=== PATIENT | female | born 1970 | race Hispanic/Latino ===

== ENCOUNTER 2022-04-14 09:10 | Emergency (ER) | payer SELFPAY ==
[~2022-04-14] VITALS: Ht 149.9 cm; Wt 90.7 kg
[~2022-04-14 09:10] MED LIST: SODIUM CHLORIDE FLUSH 10 ML SYR IV PRN
[2022-04-14] MEDS ORDERED: ONDANSETRON HCL INJ 2MG/ML 2ML 2 MG/ML VIAL IV STA (09:40)
[2022-04-14 09:43] LABS: BASOPHILS # (AUTO) 0.1 (0.0-0.1); BASOPHILS % 0.4 % (0.0-1.0); EOSINOPHILS # (AUTO) 0.1 (0.0-0.4); EOSINOPHILS % 0.8 % (0.0-6.0); HEMATOCRIT 38.9 % (34.2-44.1); HEMOGLOBIN 12.3 g/dL (12.0-16.0); LYMPHOCYTES % 22.3 % (18.0-39.1); MEAN CORPUSCULAR HEMOGLOBIN 29.9 pg (28-32); MEAN CORPUSCULAR HGB CONC 31.6 g/dL (31-35); MEAN CORPUSCULAR VOLUME 94.6 fL (81-99); MONOCYTES # (AUTO) 0.7 (0.2-0.8); MONOCYTES % 5.4 % (4.4-11.3); NEUTROPHILS # (AUTO) 9.4 (2.1-6.9); NEUTROPHILS % 70.9 % (38.7-80.0); PLATELET COUNT 194 x10e3/uL (140-360); RED BLOOD COUNT 4.11 x10e6/uL (3.6-5.1); RED CELL DISTRIBUTION WIDTH 13.8 % (11.7-14.4)
[2022-04-14] MEDS ORDERED: SODIUM CHLORIDE 0.9% 1000ML 1,000 ML IV ONE (09:45)
[2022-04-14] MEDS ORDERED: Morphine 4mg INJECTION 4 MG/ML INJ IV ONE (09:45)
[2022-04-14 10:09] LABS: ALANINE AMINOTRANSFERASE 12 IU/L (0-55); ALBUMIN 3.6 g/dL (3.5-5.0); ALKALINE PHOSPHATASE 101 IU/L (40-150); ANION GAP 15.9 mmol/L (8-16); BLOOD UREA NITROGEN 8 mg/dL (7-26); BUN/CREATININE RATIO 11 (6-25); CALCIUM 8.1 mg/dL (8.4-10.2); CARBON DIOXIDE 22 mmol/L (22-29); CHLORIDE 107 mmol/L (98-107); CREATINE KINASE 73 IU/L (29-168); CREATININE, SERUM 0.76 mg/dL (0.57-1.11); GLUCOSE 134 mg/dL (74-118); INR 0.89; POTASSIUM 3.9 mmol/L (3.5-5.1); PROTHROMBIN TIME 12.9 seconds (11.9-14.5); SODIUM 141 mmol/L (136-145)
[2022-04-14 10:10] LABS: PARTIAL THROMBOPLASTIN TIME 24.3 seconds (23.8-35.5)
[2022-04-14 10:37] LABS: AMYLASE 54 U/L (25-125); LIPASE 18 U/L (8-78)
[2022-04-14 13:23] LABS: AMPHETAMINES SCREEN,URINE NEGATIVE (NEGATIVE); PHENCYCLIDINE SCREEN,URINE NEGATIVE (NEGATIVE)
[2022-04-14 13:24] LABS: BENZODIAZEPINES SCREEN,URINE NEGATIVE (NEGATIVE)
[2022-04-14 13:25] LABS: CLARITY,URINE CLEAR (CLEAR); COLOR,URINE YELLOW (YELLOW); KETONES,URINE NEGATIVE (NEGATIVE); LEUKOCYTE ESTERASE ,URINE NEGATIVE (NEGATIVE); NITRITE,URINE NEGATIVE (NEGATIVE); PROTEIN,URINE DIPSTICK NEGATIVE (NEGATIVE); URINE UROBILINOGEN 0.2 mg/dL (0.2 - 1)
[2022-04-14 13:34] LABS: BACTERIA,URINE FEW /HPF; EPITHELIAL CELLS,URINE MANY /LPF
[2022-04-14 13:35] LABS: MUCUS,URINE FEW (RARE)
[2022-04-14] MEDS ORDERED: FLOMAX0.4 MG PO (14:02)
[2022-04-14] MEDS ORDERED: ONDANSETRON ODT4 MG PO (14:02)
[2022-04-14] MEDS ORDERED: ACETAMINOPHEN-1 EAC4 PO (14:02)
[2022-04-14] MEDS ORDERED: CEFDINIR300 MG PO (14:02)
[2022-04-14 14:12] VITALS: BP 137/79
== END 2022-04-14 14:16 | disposition home or self-care (01) ==
LOC: ER 09:41
DX: R10.31 Right lower quadrant pain (principal); N13.2 Hydronephrosis with renal and ureteral calculous obstruction; N39.0 Urinary tract infection, site not specified; R11.2 Nausea with vomiting, unspecified; F17.210 Nicotine dependence, cigarettes, uncomplicated
CPT/HCPCS: 36415; 71045; 74176; 80053; 80307; 81001; 82150; 82550; 82553; 83690; 84484; 85025; 85610; 85730; 99284; J2270; J2405; J7030